=== PATIENT | male | born 1985 | race Caucasian/White ===

== ENCOUNTER 2017-03-09 05:07 | Emergency (ER) | payer SELFPAY ==
[~2017-03-09] VITALS: Ht 182.9 cm; Wt 85.3 kg
[2017-03-09] MEDS ORDERED: Acetaminophen 500mg (ES) tab ORAL ONE (05:15)
[2017-03-09] MEDS ORDERED: KLONOPIN2 MG PO (05:16)
[2017-03-09] MEDS ORDERED: ZYPREXA10 MG ORAL (05:19)
[2017-03-09] MEDS ORDERED: SERTRALINE HCL100 MG PO (05:19)
[2017-03-09] MEDS ORDERED: TRILEPTAL300 MG PO (05:19)
--- NOTE | 2017-03-09 05:24 | Emergency Room Report ---
History of Present Illness General Chief Complaint: Chest Pain Source: Patient Present Illness HPI Is a 32-year-old male with no past medical history. He presents with chief when of chest pain he been ongoing for a week. He said he smokes marijuana and SPICE. Denies any nausea vomiting. Denies any fever. Pain is 10 out of 10. He went to [facility] earlier today and left without being seen. He tell me that he was seen and nothing was done. I call [place] and he said that he left without being seen. No exertional component. He came in by the left. He received aspirin and nitroglycerin. No relief. Allergies: Coded Allergies: NAPROXEN (Verified Allergy, Unknown, 03/09/17) Patient History Past Medical History: see triage record, old chart reviewed Past Surgical History: none Pertinent Family History: none Social History: Reports: smoking, drug use Immunizations: other Reviewed Nursing Documentation: PMH: Agreed, PSxH: Agreed Nursing Documentation-PMH History Of Psychiatric Problem: Yes - BIPOLAR,DEPRESSION,ANXIETY Review of Systems Eye: Denies: eye pain, blurred vision ENT: Denies: ear pain, nose congestion, throat swelling Respiratory: Denies: cough, shortness of breath Cardiovascular: Reports: chest pain, Denies: palpitations Gastrointestinal: Denies: abdominal pain, diarrhea, nausea, vomiting Musculoskeletal: Denies: back pain, joint pain Skin: Denies: rash Neurological: Denies: headache, numbness Endocrine: Denies: increased thirst, increased urine Hematologic/Lymphatic: Denies: easy bruising All Other Systems: negative except mentioned in HPI Physical Exam Vital Signs Date Time Temp Pulse Resp B/P (MAP) Pulse Ox O2 Delivery O2 Flow Rate FiO2 03/09/17 05:12 97.3 94 14 149/97 100 Room Air vitals normal Sp02 EP Interpretation: reviewed, normal General Appearance: well appearing, no apparent distress, alert Head: normocephalic, atraumatic Eyes: bilateral eye PERRL, bilateral eye EOMI ENT: hearing grossly normal, normal pharynx Neck: full range of motion, supple, no meningismus Respiratory: chest non-tender, lungs clear, normal breath sounds Cardiovascular #1: regular rate, rhythm, no murmur Gastrointestinal: normal bowel sounds, non tender, no mass, no organomegaly, no bruit, non-distended Musculoskeletal: back normal, gait/station normal, normal range of motion Psychiatric: mood/affect normal Skin: warm/dry Medical Decision Making Diagnostic Impression: Primary Impression: Chest pain Qualified Codes: R07.9 - Chest pain, unspecified Additional Impression: Substance abuse or dependence ER Course Patient presents with atypical chest pain. No evidence of ACS, PE, dissection to name a few. EKG normal. Troponin negative. Pain been ongoing for a week now. We'll discharge home. Lab Results Impression labs normal EKG Diagnostic Results Rate: normal Rhythm: NSR ST Segments: no acute changes Rhythm Strip Diag. Results Rhythm Strip Time: 05:23 EP Interpretation: yes Rate: 87 Rhythm: NSR, no PVC's, no ectopy Last Vital Signs Date Time Temp Pulse Resp B/P (MAP) Pulse Ox O2 Delivery O2 Flow Rate FiO2 03/09/17 05:12 97.3 94 14 149/97 100 Room Air Status: improved Disposition: HOME, SELF-CARE Condition: Stable Patient Instructions: Nonspecific Chest Pain Additional Instructions: Stop using drugs. Followup with your DrKrishna in 7 days. Return if symptom worsen. RICHARD WATKINS M.D. Mar 09, 2017 05:24
[2017-03-09 06:14] VITALS: BP 149/97
--- NOTE | 2017-03-10 11:28 | Cardiology Report ---
APPROVED REPORT EKG Measurement Heart [id number] Normal sinus rhythm Normal ECG
== END 2017-03-09 06:16 | disposition home or self-care (01) ==
LOC: EDBD 05:07 → EMR 05:23
DX: R07.89 Other chest pain (principal); F12.10 Cannabis abuse, uncomplicated
CPT/HCPCS: 84484; 93005; 99283